=== PATIENT | male | born 1975 | race Caucasian/White ===

== ENCOUNTER 2019-09-15 12:02 | Emergency (ER) | payer SELFPAY ==
[~2019-09-15] VITALS: Ht 185.4 cm; Wt 159.1 kg
[2019-09-15 12:05] VITALS: BP 162/95
== END 2019-09-15 14:25 | disposition home or self-care (01) ==
LOC: EMS 12:04
DX: J02.9 Acute pharyngitis, unspecified (principal); Z20.828 Contact with and (suspected) exposure to other viral communicable diseases
CPT/HCPCS: 99283; U0003